=== PATIENT | female | born 2000 | race Caucasian/White ===

== ENCOUNTER 2024-12-14 07:38 | Inpatient (IN) | payer BC, SELFPAY ==
[2024-12-14] VITALS (10 sets, daily range): BP systolic 120–135; BP diastolic 7–88; PULSE 64–81; RESP 16–20; TEMP 36.4–36.7; O2SAT 97–99
[2024-12-14] MEDS: IBUPROFEN TAB 400 MG TABLET 800 MG PO (08:23)
--- NOTE | 2024-12-14 08:46 | EDNOTE_ITS ---
ED General RME/HPI General Chief complaint: Abdominal Pain Stated complaint: ABDOMINAL PAIN THAT STARTED AT 0300 Arrival date/time: 12/14/24 07:38 RME / HPI RME / HPI narrative: 24-year-old female G1, now, LMP June I think with a history of highly irregular menstrual cycles (PCOS) who presents with abdominal pain. Patient delivered a baby in the emergency department waiting room, she did not know she was . Patient was rushed back to room 10. Baby is crying on the stretcher. Related Data Allergies Allergy/AdvReac Type Severity Reaction Status Date / Time No Known Allergies Allergy Verified 12/14/24 07:52 Review of Systems Review of Systems Systems Reviewed: All systems reviewed, normal except as documented ED Exam Narrative Physical exam: GENERAL APPEARANCE: AxOx4, generally well-appearing, no acute distress, quite surprised, non-toxic HEART: Normal rate and regular rhythm, normal S1/S1, no m/r/g LUNGS: CTAB, moving air well. No crackles or wheezes are heard. ABDOMEN: Soft, nontender, nondistended with good bowel sounds heard. : scant bleeding, umbilical cord clean NEUROLOGICAL: Grossly nonfocal. Alert and oriented, moving all 4 extremities. CN not formally tested but appear grossly intact. Observed to ambulate with normal gait. Skin: Warm and dry without any rash. Course Quality Measures none Vital Signs Vital signs: Vital Signs Temperature 97.5 F 12/14/24 08:01 Pulse Rate 81 12/14/24 08:01 Respiratory Rate 18 12/14/24 08:01 Blood Pressure 128/88 H 12/14/24 08:01 Pulse Oximetry (%) 99 12/14/24 08:01 Oxygen Delivery Method Room Air 12/14/24 08:01 [facility] Patient data External records reviewed:: [facility] previous records Clinical information provided by:: patient and spouse Social determinants that could affect healthcare access:: none Patient has the following chronic illnesses:: None How is presenting disease/condition affected by chronic disease/condition?: no chronic disease Evaluation data The following diagnostics were reviewed and interpreted by me:: other (specify) (Not applicable) Lab and/or radiology exams considered but not ordered:: None Interpretation Summary: None Medications Medications considered but not ordered:: None Medication administrations:: Medication Administration History Benzocaine (Benzo/Lano/Aloe (Dermoplast) 60 Gm Can) 1 spray TOP PRN PRN PRN Reason: PERINEAL DISCOMFORT Stop: 01/13/25 07:59 Carboprost Tromethamine (Carboprost Trometh Inj 250 Mcg/Ml Vial) 250 mcg IM X1 PRN PRN Reason: refractory hemorrhage Lactated Ringer's (Lactated Ringers) 500 mls @ 999 mls/hr IV .Q31M PRN PRN Reason: HR tracing (Per Policy) Stop: 01/13/25 07:59 Tranexamic Acid (Tranexamic Acid Ivpb) 1,000 mg in 100 mls @ 200 mls/hr IV PRNMRX1 PRN PRN Reason: BLEEDING Oxytocin/Sodium Chloride (Pitocin 20 Units In Ns) 20 unit in 1,000 mls @ 125 mls/hr IV .Q8H [facility] Stop: 01/13/25 07:59 Sodium Chloride (Ns) 1,000 mls @ 100 mls/hr IV .Q10H [facility] Stop: 01/13/25 07:59 Methylergonovine Maleate (Methylergonovine Inj 0.2 Mg/Ml Vial) 0.2 mg IM X1 PRN PRN Reason: Excessive Bleeding Misoprostol (Misoprostol 200 Mcg Tablet) 800 mcg HI X1 PRN PRN Reason: BLEEDING Oxytocin (Oxytocin Inj 10 Unit/Ml Vial) 10 unit IM X1 PRN PRN Reason: After placenta delivers Discontinued Medications Ibuprofen (Ibuprofen Tab 400 Mg Tablet) 800 mg PO X1 PRN PRN Reason: uterine cramping Last Admin: 12/14/24 08:23 Dose: 800 mg Documented By: BRENDAN Lidocaine HCl (Lidocaine Hcl 1% 20 Ml Vial) 20 ml INFL X1 ONE Stop: 12/14/24 08:01 Above Consultations Consultation(s) initiated? (list below): No Diagnosis Differential Diagnosis ED Complaint MDM: , labor, multiple gestation Most likely diagnosis given after review of the tests above:: See below Admission Indicated Admission indicated?: indicated Explain why admission is indicated or not indicated:: As per narrative Admission Request Was there a request for admission?: Yes Admission Attestation Admission request attestation: Discussed case with [] from labor and delivery service regarding admission. Discussed patients ED course, exam findings, labs, and radiology results. The labor and delivery [agrees] to accept the patient for admission. Disposition Plan Disposition Plan: Admit Medical Decision Making MDM Narrative MDM Narrative: Ms. Cota has a history of PCOS and highly irregular menstrual cycles who has been told that she could never have babies and was planning on fertility treatments. To her surprise she has abdominal pain today of which resulted in delivering of her baby boy in the waiting room here. Baby was crying and vigorous. After delivery of baby patient is otherwise asymptomatic aside from being extremely surprised with very big smile. Differential Diagnosis Differential Diagnosis: , labor, multiple gestation Discharge Plan Plan Patient Disposition: Admit Acute Care w/in Hospital Problem List Clinical Impression:
[2024-12-14] MEDS: OXYTOCIN in NS 20 units 20 UNIT/1,000 ML BAG 125 UNIT IV (08:54)
--- NOTE | 2024-12-14 09:18 | EKG_ITS ---
[facility] Test Date: 2024-12-14 Pat Name: RAUL WARNER Department: Room: [facility] Gender: Female Scout: ENRRIQUE : 2000 Requested By: Nadia Richards Order Number: [id number] Reading MD: Nadia Richards Measurements Intervals [place] Rate: 56 P: 20 [place]: 127 QRS: 63 QRSD: 86 T: 31 QT: 410 QTc: 396 Interpretive Statements SINUS BRADYCARDIA No previous ECG available for comparison /store/S0/[id number].pdf
[2024-12-14 09:49] LABS: Basophils % (Auto) 0 % (0-2.5); Eosinophils % (Auto) 0 % (0-10); Hematocrit 40.6 % (36.0-46.0); Hemoglobin 13.7 g/dL (12.0-16.0); Immature Granulocytes % (Auto) 1 % (0-0); Immature Granulocytes Auto 0.11 Thou/mm3 (0.00-0.00); Lymphocytes # (Auto) 0.8 Thou/mm3 (1.0-4.8); Lymphocytes % (Auto) 4 % (10-50); Mean Corpuscular HGB Conc 33.7 g/dl (31.0-37.0); Mean Corpuscular Hemoglobin 27.4 pg (25.0-35.0); Mean Corpuscular Volume 81 fL (80-100); Monocytes # (Auto) 0.3 Thou/mm3 (0.0-0.8); Monocytes % (Auto) 2 % (0-12); Neutrophils % (Auto) 93 % (37-80); Nucleated Red Blood Cell % 0 /100 WBC (0); Platelet Count 209 Thou/mm3 (140-440); RDW Standard Deviation 38.5 fL (36.4-46.3); White Blood Count 17.1 Thou/mm3 (3.6-11.0)
--- NOTE | 2024-12-14 09:56 | ESHP_ITS ---
Documentation for date of: 12/14/24 OB Labor/Induct. HPI History of Present Illness Chief complaint: patient denies knowing she was / LMP early june 2024 / no PNC : 1 Para: 1 History of sections: No Indication for induction: other History of present illness: patient came in labor and delivered the baby , who looks like a term baby in ED ad came to L&D with an intact placenta in situ and delivered it here History of Present Dating criteria: other Adequate Care: No (pnc, did not know she was ) Ultrasounds: none Obstetrical complications: other (no care / baby born in ED , patient came in labor and delivered placenta in ED ) Medical complications: other Narrative: 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 Labs Maternal Blood Type: Unknown Narrative: ordered Review of Systems Review of Systems Systems Reviewed: All systems reviewed, normal except as documented Psychiatric Psychiatric: Reports system reviewed and no additional complaints, except as documented and Reports as per HPI Past Medical History Past Medical History CARDIAC: Positive Cardiac Disorders (POTS) MUSCULOSKELETAL: Positive Musculoskeletal Disorders (Mony-Danlos syndrome ) PSYCHO/SOCIAL: Positive Recreational Drug Use Surgical History SURGICAL: Negative Section Meds Home Medications and Allergies Allergies Allergy/AdvReac Type Severity Reaction Status Date / Time No Known Allergies Allergy Verified 12/14/24 07:52 OB Exam Physical Exam Vital signs: Temp Pulse Resp BP Pulse Ox O2 Del Method 98.1 F 65 18 120/7 L 99 Room Air 12/14/24 09:01 12/14/24 09:01 12/14/24 09:01 12/14/24 09:01 12/14/24 09:01 12/14/24 09:01 Narrative: Placenta in situ with cord hanging out of introitus / light bleeding Constitutional Constitutional: no acute distress Routine Neck Exam Neck: Present supple and full ROM Routine Respiratory Exam Respiratory: Present CTA bilaterally Comments: normal Routine Cardiovascular Exam Comments: normal on auscultation Routine Abdominal Exam Comments: uterus firm and just above umbilicus / non tender fundus Routine Exam External: Present normal urethra appearance Comments: iv pitocin started and delivered intact placenta , small left sided abrasion , superficial and not bleeding Detailed Labor and Delivery Exam Comments: baby delivered , placenta with cord hanging and delivered intact , EBL is 80 cc small left sided non bleeding superficial abrasion Routine Extremities Exam Extremities: Present full ROM and pulses intact Routine Skin Exam Skin: Present intact and normal turgor Routine Psychiatric Exam Psychiatric: Present normal affect, normal thought process, cooperative, good insight and good judgment OB Results Labs 12/14/24 10:32 12/14/24 10:32 Labs: Short CBC 12/14/24 Range/Units 08:18 WBC 17.1 H (3.6-11.0) Thou/mm3 Hgb 13.7 (12.0-16.0) g/dL Hct 40.6 (36.0-46.0) % Plt Count 209 (140-440) Thou/mm3 Impressions Impression: Born out of asepsis in ED , patient came in labor with no PNCare / placental delivery in L&D , h/o Pott's syndrome and Ehler Danlos syndrome Plan Hospitalist consult . labs and Tox screen ordered / financial services sales representative consult already orderd
[2024-12-14 10:16] LABS: Syphilis Nonreactive (Nonreactive)
--- NOTE | 2024-12-14 10:22 | PD.LDDELS ---
Data (Lepe) Data Hx Section: No Delivery Data (Lepe) Delivery Method Delivery: Vaginal Presentation: Vertex Anesthesia Type Primary Anesthesia: None Placenta Placenta Delivery: Spontaneous Placenta Cultures Obtained: No Placenta Sent for Examination: Yes Episiotomy Episiotomy: None EBL Estimated blood loss (ml): 80 Umbilical Cord Umbilical Vessels: 3 Nuchal Cord: Not Applicable Body Cord: Not Applicable Additional Procedures Baby delivered in ED Placenta delivered in L&D Complications Complications: none
[2024-12-14 11:22] LABS: Basophils % (Auto) 0 % (0-2.5); Eosinophils % (Auto) 0 % (0-10); Hematocrit 38.4 % (36.0-46.0); Immature Granulocytes % (Auto) 1 % (0-0); Immature Granulocytes Auto 0.14 Thou/mm3 (0.00-0.00); Lymphocytes # (Auto) 0.8 Thou/mm3 (1.0-4.8); Lymphocytes % (Auto) 4 % (10-50); Mean Corpuscular HGB Conc 33.9 g/dl (31.0-37.0); Mean Corpuscular Hemoglobin 27.3 pg (25.0-35.0); Mean Corpuscular Volume 81 fL (80-100); Monocytes # (Auto) 0.6 Thou/mm3 (0.0-0.8); Monocytes % (Auto) 3 % (0-12); Neutrophils # (Auto) 19.9 Thou/mm3 (1.8-7.7); Neutrophils % (Auto) 93 % (37-80); Nucleated Red Blood Cell % 0 /100 WBC (0); Platelet Count 237 Thou/mm3 (140-440); RDW Standard Deviation 38.5 fL (36.4-46.3); Red Blood Count 4.77 Miln/mm3 (4.00-5.20); White Blood Count 21.5 Thou/mm3 (3.6-11.0)
[2024-12-14 11:41] LABS: Glucose Estimated Average 91 mg/dL (80-131); Hemoglobin A1C 4.8 % Hgb (4.8-6.0)
[2024-12-14 11:50] LABS: Alanine Aminotransferase 11 U/L (10-49); Albumin, Serum 3.6 gm/dL (3.5-5.0); Albumin/Globulin Ratio 1.4 (1.2-2.2); Alkaline Phosphatase 143 U/L (46-116); Anion Gap 12 (7-16); Aspartate Amino Transferase 22 U/L (0-34); BUN/Creatinine Ratio 13 Ratio (12-20); Bilirubin,Total 0.4 mg/dL (0.3-1.2); Blood Urea Nitrogen 8 mg/dL (9-23); Calcium 9.1 mg/dL (8.3-10.6); Calcium (Corrected) 9.4 mg/dL (8.5-10.1); Carbon Dioxide 18.9 mMol/L (20.0-31.0); Chloride 105 mMol/L (98-107); Creatinine (Component) 0.6 mg/dL (0.6-1.3); Globulin 2.6 gm/dL (2.3-3.5); Glucose 79 mg/dL (74-106); Osmolality,Calculated 269 (275-295); Potassium 4.2 mMol/L (3.4-5.1); Sodium 136 mMol/L (136-145); Thyroid Stimulating Hormone 3.33 uIU/mL (0.55-4.78); Total Protein 6.2 gm/dL (5.7-8.2); eGFR > 60 See Note
--- NOTE | 2024-12-14 13:53 | PC.SS ---
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 This is 24-year-old, , life-partnered female who presented to the ED due to suffering from abdominal pain. While in the ED, patient delivered a son. SW introduced self, role and reason for visit. Patient appeared alert and oriented to self, place and situation. Patient was pleasant, her mood and behavior appeared ordinary. Patient's thought process was logical and linear. Patient reported that she was off work last week, so she and her fianceBenny ([phone]) decided to come to [place] to camp. Patient reported that while camping, patient started suffering from abdominal pain. However, she thought that it was just the flu. Patient reported that this morning, her abdominal pain was so severe that she requested for Benny to bring her to the ED. While registering, patient reported that her body started to contract by itself, then it was reported to her that she delivered a son. Patient reported that she was in shock; however, as time is passing by, patient feels happier and excited. Patient has plans to keep her son, and she has not thought of a name yet. Patient reported that she did not receive care as she never thought that she was going to be able to naturally conceive any children. Patient reported that due to her PCOS, she was advised that she would need IVF treatment. Patient's last menstrual cycle was in June of 2024. Patient reported that she still lives at home with her parents and her fianceBenny. Patient verified her address: [address] [place] [address]. 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 Patient's insurance is [employer]. Patient reported being independent with all ADLs, no DME use. Patient reported a history of being diagnosed with anxiety disorder. She denies receiving any outpatient mental health services. Patient denies any history of suicide attempts, 5150 holds. Patient denied any current HI, SI, A/h or V/h. Patient denied any domestic violence between her and Benny. Patient reported that her UDS might be positive for cannabis, as she was using edibles and smoking. Patient reported that she was unaware of her and never stopped her cannabis consumption. SW explained that due to [facility] policy, if her son's UDS results positive for cannabis, then a SCAR will be completed. Patient appeared receptive to the information. Patient denied any other substance use. Patient reported that parents: Jeremy and Debra are really supportive. She already contacted them, and they are on their way to come see her, bring her clothes, diapers, and a car seat. Patient and are pending UDS. No SCAR is warranted at this time. Patient has support from partner and parents. Patient was unaware of her ; therefore, the lack of care. When medically cleared, patient will return home.
--- NOTE | 2024-12-14 14:54 | ESCONSULT_ITS ---
HPI Data of Consult Consult date: 12/14/24 Requesting Physician: Nadia Richards MD Admitting Provider: Nadia Richards MD Attending Provider: Nadia Richards MD Primary Care Provider: Physician No Primary/Family Consult Narrative History of present illness: The patient is a 24-year-old female with a past medical history significant for hypermobile Mony-Danlos syndrome, PCOS as well as POTS who presented to the ED on 12/14/2024 with abdominal pain. Per the patient, she had no idea that she was , she reports that her last menstrual period was in June but she does have a history of irregular menstrual cycles and so did not think much of it. She was on a camping trip with her partner when she started having abdominal pain and was brought to the emergency room. While in the waiting room, the patient delivered the baby and OB was consulted. Internal medicine team was consulted for further recommendations for chronic medical conditions. cc:: cc: Nadia Richards MD Review of Systems Review of Systems Systems Reviewed: All systems reviewed, normal except as documented Exam Vital Signs Temp Pulse Resp BP Pulse Ox O2 Del Method 98.1 F 71 20 128/77 99 Room Air 12/14/24 09:30 12/14/24 10:00 12/14/24 10:00 12/14/24 10:00 12/14/24 10:00 12/14/24 10:00 Narrative Exam GENERAL: AAOX3 NEURO: DIRECTOR APPOINTMENT grossly intact, moves extremities x4 HEENT: Moist mucosa. Eyes open, symmetrical, & clear CARDIO: No chest pain on palpation. Heart RRR, no obvious murmurs PULM: No noted coughing/dyspnea. Lungs CTA B/L GI: Abdomen soft, nondistended, no pain on palpation. BSx4 URO/SUPERVISOR POULTRY HATCHERY:: No further abnormalities noted. SKIN/MSK/EXT: No wounds/rashes/edema/amputations, no pain on palpation. Pedal pulses present B/L Results Labs 12/14/24 10:32 12/14/24 10:32 Labs: Short CBC 12/14/24 12/14/24 Range/Units 08:18 10:32 WBC 17.1 H 21.5 H (3.6-11.0) Thou/mm3 Hgb 13.7 13.0 (12.0-16.0) g/dL Hct 40.6 38.4 (36.0-46.0) % Plt Count 209 237 (140-440) Thou/mm3 BMP 12/14/24 10:32 Sodium 136 Potassium 4.2 Chloride 105 Carbon Dioxide 18.9 L BUN 8 L Creatinine 0.6 Glucose 79 Calcium 9.1 Liver Function 12/14/24 Range/Units 10:32 Total Bilirubin 0.4 (0.3-1.2) mg/dL AST 22 (0-34) U/L ALT 11 (10-49) U/L Alkaline Phosphatase 143 H (46-116) U/L Albumin 3.6 (3.5-5.0) gm/dL Quality Measures Quality Measures none Medications Home Medications and Allergies Allergies Allergy/AdvReac Type Severity Reaction Status Date / Time No Known Allergies Allergy Verified 12/14/24 07:52 Visit Medications Benzocaine (Benzo/Lano/Aloe (Dermoplast) 60 Gm Can) 1 spray TOP PRN PRN PRN Reason: PERINEAL DISCOMFORT Stop: 01/13/25 07:59 Carboprost Tromethamine (Carboprost Trometh Inj 250 Mcg/Ml Vial) 250 mcg IM X1 PRN PRN Reason: refractory hemorrhage Lactated Ringer's (Lactated Ringers) 500 mls @ 999 mls/hr IV .Q31M PRN PRN Reason: HR tracing (Per Policy) Stop: 01/13/25 07:59 Tranexamic Acid (Tranexamic Acid Ivpb) 1,000 mg in 100 mls @ 200 mls/hr IV PRNMRX1 PRN PRN Reason: BLEEDING Oxytocin/Sodium Chloride (Pitocin 20 Units In Ns) 20 unit in 1,000 mls @ 125 mls/hr IV .Q8H [facility] Stop: 01/13/25 07:59 Last Admin: 12/14/24 08:54 Dose: 125 mls/hr Sodium Chloride (Ns) 1,000 mls @ 100 mls/hr IV .Q10H [facility] Stop: 01/13/25 07:59 Methylergonovine Maleate (Methylergonovine Inj 0.2 Mg/Ml Vial) 0.2 mg IM X1 PRN PRN Reason: Excessive Bleeding Misoprostol (Misoprostol 200 Mcg Tablet) 800 mcg IA X1 PRN PRN Reason: BLEEDING Oxytocin (Oxytocin Inj 10 Unit/Ml Vial) 10 unit IM X1 PRN PRN Reason: After placenta delivers Discontinued Medications Ibuprofen (Ibuprofen Tab 400 Mg Tablet) 800 mg PO X1 PRN PRN Reason: uterine cramping Last Admin: 12/14/24 08:23 Dose: 800 mg Lidocaine HCl (Lidocaine Hcl 1% 20 Ml Vial) 20 ml INFL X1 ONE Stop: 12/14/24 08:01 Assessment & Plan Plan Summary: The patient is a 24-year-old female with a past medical history significant for hypermobile Mony-Danlos syndrome, PCOS as well as POTS who presented to the ED on 9 12/14/2024 with abdominal pain #History of POTS Patient has a history of POTS and was supposedly diagnosed couple years back. While she does not do any close follow-up for this condition, she reports intermittent symptoms of dizziness. Plan: -Encourage patient to ensure hydration at all times -Encouraged slow to rise technique -Advised patient to purchase compression stockings -Follow-up with a production zone leader #History of Mony-Danlos The patient has a history of hypermobile Mony-Danlos but does not follow volunteer fire fighter. At this time, patient is at baseline and does not have any exacerbation of her condition. Will recommend for patient to have close follow-up with PCP and possibly acquired volunteer fire fighter as well as consider genetic screening for . Plan: -Recommend multivitamins (zinc, vitamin C) to promote wound healing as needed -Bleeding precautions -Follow-up with PCP and volunteer fire fighter referral -Consider genetic screening for Thank you for the opportunity participate in the care of Ms. Cota. Internal medicine team will follow Case was discussed with Dr Oquendo PGY-2 and attending physician, Dr Joseline Morel MD PGY-1 Disclaimer: This note was dictated by speech recognition. Minor errors in data base administrator may be present due to voice recognition software. LPatient examined and case discussed with the team including attending physician. Note reviewed, I agree with the care plan as documented. Ms Noble is a 24-year-old female admitted for spontaneous urgent normal delivery, [place] Patient has no recorded history at our facility. Internal medicine hospitalist team was consulted for close follow-up. Her past medical history includes Mony-Danlos syndrome and recently diagnosed postural orthostatic tachycardia syndrome (POTS). She is currently in stable condition, day 1 and is not under any exacerbation of her connective tissue disorder. She denies any recent flareups and is not on any medications for her medical conditions. Recommendations: We will start patient on zinc and vitamin C to aid in wound healing in the setting of an abdominal abscess. Vitals on exam were stable HR 70s and blood pressure 120s/70s at this time. Mother and baby appear to be in good health on exam, patient is saturating 99% on room air. She was counseled extensively and advised genetic screening for the baby. Patient will need outpatient rheumatology follow-up for close monitoring of her medical condition. At this time patient is medically stable and does not require any acute internal medicine intervention. Thank you for the consultation, we are grateful to be able to participate in Ms. Noble's care. - Rico Oquendo MD, PGY 2 Disclaimer: The document below may not be free of grammatical/phonetic/typographic errors due to use of voice recognition software. This does not dissuade from the commitment to providing health care with the patient's best interest in mind. L Attending Provider Attestation/Addendum I have examined the patient, reviewed labs and imaging findings, discussed the case with the resident(s), and reviewed entered orders. I agree with the plan of care as outlined in this note. Dr. Joseline MD
[2024-12-14 16:04] LABS: Amphetamine/Metham Scrn,Ur OB Negative (Negative); Benzoylecgonine Screen, Ur OB Negative (Negative); Opiate Screen,Urine OB Negative (Negative); THC Screen,Urine OB Positive (Negative)
[2024-12-14 16:05] LABS: THC U Confirm* See Sep Rpt
[2024-12-14 17:12] LABS: HIV (1&2) Antibody Rapid Non-Reactive
[2024-12-15 03:30] VITALS: BP 133/89; PULSE 60; RESP 16; TEMP 36.7; O2SAT 97
[2024-12-15 07:50] VITALS: BP 126/80; PULSE 62; RESP 15; TEMP 36.6; O2SAT 98
--- NOTE | 2024-12-15 10:18 | ESDS_ITS ---
DS: Providers Provider Date of admission: 12/14/24 07:58 Primary care physician: Physician No Primary/Family Admitting Provider: Nadia Richards MD Attending Provider on Admission: Nadia Richards MD Consults: 12/14/24 09:28 Consult to Adult Hospitalist Urgent Comment: Pt has POTS, Mony Daulos Syndrome Consulting Provider: Kyree Trevizo Attending Provider on DC: Nadia Richards MD Discharging Provider: Nadia Richards MD DS: Diagnosis Problem List Completed Was Problem List Reviewed/Reconciled?: Yes Summary/Hosp Course Brief History: The patient is a 24-year-old female with a past medical history significant for hypermobile Mony-Danlos syndrome, PCOS as well as POTS who presented to the ED on 12/14/2024 with abdominal pain. Per the patient, she had no idea that she was , she reports that her last menstrual period was in June but she does have a history of irregular menstrual cycles and so did not think much of it. She was on a camping trip with her partner when she started having abdominal pain and was brought to the emergency room. While in the waiting room, the patient delivered the baby and OB was consulted. Internal medicine team was consulted for further recommendations for chronic medical conditions. Status at Discharge Cognitive/behavioral status at discharge: normal Functional status at discharge: independent ambulation Overall status at discharge: patient is back to baseline Time Spent with Patient Time attestation: Total time spent providing and/or coordinating discharge services: Exam Vital Signs Temp Pulse Resp BP Pulse Ox O2 Del Method 97.9 F 62 15 126/80 98 Room Air 12/15/24 07:50 12/15/24 07:50 12/15/24 07:50 12/15/24 07:50 12/15/24 07:50 12/15/24 07:50 Narrative Exam doing well , back to baseline . afebrile .elevated WBC but asymptomatic will send home on oral augmentin and follow up with her OB ib in 2 to 4 weeks in [place] Constitutional Constitutional: no acute distress Routine Neck Exam Neck: Present supple and full ROM Routine Respiratory Exam Respiratory: Present chest non-tender, lungs clear, normal breath sounds, no resp distress and CTA bilaterally Routine Cardiovascular Exam Cardiovascular: Present RRR Routine Abdominal Exam Abdominal: Present soft and normoactive bowel sounds Comments: uterus firm and 3 fingers below the umblicus , non tender fundus , non tender abdomen Routine Extremities Exam Extremities: Present full ROM, pulses intact, normal capillary refill and calf tenderness (none ) Routine Back/Spine/Pelvis Exam Back/Spine: Present full ROM and CVA tenderness (none) Routine Skin Exam Skin: Present intact and normal turgor Routine Neurological Exam Neurological: Present alert, oriented X3, CN II-XII intact, normal reflexes and vision grossly intact Routine Psychiatric Exam Psychiatric: Present normal affect, normal thought process, cooperative and good judgment Comments: happy and cheerful Discharge Plan Plan Patient Disposition: HOME (Self Care) Disposition Comment: stable for discharge Patient condition on transfer: Stable Prescriptions/Referrals Prescriptions/Med Rec: New amoxicillin-pot clavulanate [Augmentin] 500-125 mg tablet 1 tab PO BID Qty: 14 0RF ibuprofen 600 mg tablet 600 mg PO Q8H PRN (Reason: fever or pain) Qty: 30 0RF Referrals: No Primary/Family,Physician [Primary Care Provider] - Outpatient Orders (i.e. Home Health, Labs, Imaging): CBC (Routine) Location: None Selected Ordered By: Nadia Richards Patient/Caregiver Discharge Instructions Discharge Activity: activity as tolerated Other Discharge Activity Instructions:: pelvic rest x 6 weeks Other Discharge Diet Instructions: regular Education Materials: After a Vaginal , Understanding Blues, Print Language: Macanese Activity Restrictions/Additional Instructions: Follow up with an OB in 6 weeks for check up Stand Alone Forms: [facility]oma Fournier Info., Patient Portal Info Letter Discharge Order Discharge Orders: Discharge (Routine); Ordered 12/15/24 Ordered By: Nadia Richards Planned Discharge Date 12/15/24
[2024-12-15 11:24] VITALS: BMI 27.3
--- NOTE | 2024-12-15 13:13 | ESPR_ITS ---
Documentation for date of: 12/15/24 Subjective Subjective Interval history: Patient was seen and examined at bedside this AM. No acute events overnight. Patient tolerating diet, adequate urine output and mentation is at baseline. Patient denies any acute complaints at this time. Vitals wnl. Exam Vital Signs Temp Pulse Resp BP Pulse Ox O2 Del Method 97.9 F 62 15 126/80 98 Room Air 12/15/24 07:50 12/15/24 07:50 12/15/24 07:50 12/15/24 07:50 12/15/24 07:50 12/15/24 07:50 Narrative Exam Constitutional Alert, oriented x3 and comfortable. Post Day 2 HEENT Vision grossly intact. Patent nares. Trachea midline. Respiratory Chest normal on inspection and clear to auscultation bilaterally. Cardiovascular S1 and S2 audible, RRR. No murmurs or carotid bruit. No gross JVD. Abdominal Soft and non tender to palpation in all quadrants. BS + Genitourinary No bladder tenderness, no flank pain. Normal to palpation. Musculoskeletal Extremities tone within normal limits. No LE edema. Neurological CN II - XII grossly intact. Extremity motor and sensation grossly intact. Skin Warm, dry and intact. No apparent lesions. Psychiatric Patient has a good affect, is cooperative. Objective Labs 12/14/24 10:32 12/14/24 10:32 Labs: Laboratory Results - last 24 hr 12/14/24 12/14/24 10:32 15:00 Urine Opiates Screen Negative U Amphetamin/Meth Scrn Negative U Cocaine Metab Screen Negative U Marijuana (THC) Screen Positive A HIV 1&2 Antibody Rapid Non-Reactive Quality Measures Quality Measures none Assessment & Plan Plan The patient is a 24-year-old female with a past medical history significant for hypermobile Mony-Danlos syndrome, PCOS as well as POTS who presented to the ED on 9 12/14/2024 with abdominal pain Reason for consult : Hx of Mony Danlos and POTS Post Day 2 , Postural Orthostatic tachycardia Syndrome (POTS) - stable Patient has a history of POTS and was supposedly diagnosed couple years back. While she does not do any close follow-up for this condition, she reports intermittent symptoms of dizziness. Recommendations: - Encourage patient to ensure hydration at all times - Encouraged slow to rise technique - Advised patient to use compression stockings - Follow-up with a livestock dealer outpatient for continued monitoring Mony-Danlos Syndrome The patient has a history of hypermobile Mony-Danlos but does not follow supervisory aide. At this time, patient is at baseline and does not have any exacerbation of her condition. Will recommend for patient to have close follow-up with PCP and possibly acquired supervisory aide as well as consider genetic screening for . Recommendations: - Recommend multivitamins (zinc, vitamin C) to promote wound healing as needed - Bleeding precautions - Follow-up with PCP and supervisory aide referral - Consider genetic screening for Thank you for the consultation, we are grateful to be able to participate in Ms. Noble's care. Plan of care discussed with attending Xavi Harrington M.D. PGY2 Disclaimer: This note was dictated by speech recognition. Minor errors in on air personality may be present due to voice recognition software. Attending Provider Attestation/Addendum I have examined the patient, reviewed labs and imaging findings, discussed the case with the resident(s), and reviewed entered orders. I agree with the plan of care as outlined in this note. Dr. Joseline MD
[2024-12-16 04:01] LABS: Hepatitis B Surface Antigen Non Reactive (Non React)
== END 2024-12-15 14:50 | disposition home or self-care (01) | DRG 806 ==
LOC: SERX 07:58 → S4SX 07:59 → S4NX 10:44
PROVIDERS: Admitting Provider Obstetrics & Gynecology; Emergency Provider Emergency Medicine; Visit Provider Obstetrics & Gynecology
DX: O99.354 Diseases of the nervous system complicating childbirth (principal); Q79.62 Hypermobile Ehlers-Danlos syndrome; Z37.0 Single live birth; G90.A Postural orthostatic tachycardia syndrome [POTS]; O99.891 Other specified diseases and conditions complicating pregnancy; O99.284 Endocrine, nutritional and metabolic diseases complicating childbirth; E28.2 Polycystic ovarian syndrome; Z3A.00 Weeks of gestation of pregnancy not specified
CPT/HCPCS: 36415; 80053; 80307; 83036; 84443; 85025; 86703; 86762; 86780; 86850; 86900; 86901; 87340; 93005; J2590; A9270